=== PATIENT | female | born 1980 | race Caucasian/White ===

== ENCOUNTER 2017-08-25 15:07 | Emergency (ER) | payer MEDICAID ==
[~2017-08-25] VITALS: Ht 160 cm; Wt 92.2 kg
[~2017-08-25 15:07] MED LIST: CEPH500C5 PO; NAPR-1154 PO; PHEN-873 PO; TRAM50TA2 PO
[2017-08-25 15:16] VITALS: BP 174/110
[2017-08-25] MEDS ORDERED: TETanus/Pertussis (Acell)/Diphther VAC/PF (Tdap-Adult) 0.5ml syringe IM ONE (16:45)
[2017-08-25] MEDS ORDERED: BUPIVAcaine/PF 2.5 mg/ml (0.25%) 30ml vial IJ ONE (16:45)
== END 2017-08-25 18:12 | disposition home or self-care (01) ==
LOC: ER 15:08
DX: S51.812A Laceration without foreign body of left forearm, initial encounter (principal); I10 Essential (primary) hypertension; Z79.899 Other long term (current) drug therapy; W01.198A Fall on same level from slipping, tripping and stumbling with subsequent striking against other object, initial encounter; Y93.01 Activity, walking, marching and hiking; Y92.89 Other specified places as the place of occurrence of the external cause; Y99.8 Other external cause status
CPT/HCPCS: 12001; 90471; 90715; 99283; A6449; J3490

== ENCOUNTER 2019-04-07 05:32 | Day surgery (SDC) | payer MEDICAID ==
[2019-04-02 11:40] LABS: BASOPHILS # (AUTO) 0.1 X10'3 (0-0.2); BASOPHILS % (AUTO) 0.5 % (0-1); EOSINOPHILS # (AUTO) 0.1 X10'3 (0-0.9); EOSINOPHILS % (AUTO) 0.6 % (0-6); LYMPHOCYTES # (AUTO) 2.4 X10'3 (1.1-4.8); LYMPHOCYTES % (AUTO) 18.3 % (21-51); MEAN CORPUSCULAR HEMOGLOBIN 31.7 PG (27.0-31.0); MEAN CORPUSCULAR HGB CONC 33.8 g/dL (33.0-36.5); MEAN CORPUSCULAR VOLUME 93.8 FL (78-98); MEAN PLATELET VOLUME 9.4 FL (7.4-10.4); MONOCYTES # (AUTO) 0.8 X10'3 (0-0.9); MONOCYTES % (AUTO) 6.3 % (2-12); NEUTROPHILS # (AUTO) 9.6 X10'3 (1.8-7.7); NEUTROPHILS % (AUTO) 74.3 % (42-75); PRE OP HEMATOCRIT 44.9 % (35.0-45.0); PRE OP HEMOGLOBIN 15.2 g/dL (12.0-16.0); PRE OP PLATELET COUNT 259 X10'3 (140-440); RED BLOOD COUNT 4.79 X10'6 (4.20-5.60); RED CELL DISTRIBUTION WIDTH 14.1 % (11.5-14.5)
[2019-04-02 11:58] LABS: ALBUMIN 3.7 G/DL (3.4-5.0); ALBUMIN/GLOBULIN RATIO 1.1 (1.1-1.5); ALKALINE PHOSPHATASE 73 IU/L (46-116); BLOOD UREA NITROGEN 10 MG/DL (7-18); BUN/CREATININE RATIO 13.2 (6.6-38.0); CALCIUM 8.5 MG/DL (8.5-10.1); CHLORIDE 107 MMOL/L (99-107); CREATININE 0.76 MG/DL (0.40-0.90); PRE OP ALT 29 U/L (30-65); PRE OP ANION GAP 11 (8-16); PRE OP AST 19 U/L (10-37); PRE OP BILIRUB, TOTAL 0.4 MG/DL (0.0-1.0); PRE OP GLUCOSE 93 MG/DL (70-104); PRE OP POTASSIUM 4.3 MMOL/L (3.4-5.1); PRE OP SODIUM 139 MMOL/L (135-145); TOTAL CARBON DIOXIDE 21.1 MMOL/L (24-32); TOTAL PROTEIN 7.2 G/DL (6.4-8.2); eGFR 86 ML/MIN
[~2019-04-07] VITALS: Ht 160 cm; Wt 88.9 kg
[2019-04-07] VITALS (9 sets, daily range): BP systolic 11–148; BP diastolic 65–112
[~2019-04-07 05:32] MED LIST changes: -CEPH500C5 PO; +LOSA50TA3 PO; -NAPR-1154 PO; -PHEN-873 PO; -TRAM50TA2 PO
[2019-04-07] MEDS ORDERED: scopolamine 1.5mg patch.TD72 TD ONE (06:30)
[2019-04-07] MEDS ORDERED: albuterol 2.5 MG/3 ML nebule NEB ONE (06:30)
[2019-04-07] MEDS ORDERED: ringers solution, lacted 1,000 ML IV SCH ×2 (06:30→08:14)
[2019-04-07] MEDS ORDERED: famotidine 20mg tablet PO ONE (06:30)
[2019-04-07] MEDS ORDERED: LIDOcaine 1% (10mg/ml) 2ml vial ONE (06:39)
[2019-04-07] MEDS ORDERED: BUPIVAcaine/PF 2.5mg/ml (0.25%) 10ml vial ONE (06:42)
[2019-04-07] MEDS ORDERED: cefazolin/dext.iso 2gm/100ml 100 ML IV ONE (07:15)
[2019-04-07] MEDS ORDERED: vancomycin/NS 1 GM ADD-VANTAGE 250 ML IV ONE (07:15)
[2019-04-07] MEDS ORDERED: cloNIDine hcl/PF 100mcg/ml inj ONE (07:18)
[2019-04-07] MEDS ORDERED: MIDAZolam 5mg/5ml vial ONE (07:20)
[2019-04-07] MEDS ORDERED: fentaNYL/PF 50MCG/1 ML 2ML syringe ONE (07:20)
[2019-04-07] MEDS ORDERED: ROPIVAcaine 0.5% (5mg/ml) 30ml vial ONE ×2 (07:21→09:16)
[2019-04-07] MEDS ORDERED: ketorolac trometh. 30mg/ml inj. ONE (07:21)
[2019-04-07] MEDS ORDERED: LIDOcaine 2% (20mg/ml) 5ml vial ONE ×2 (07:21→07:24)
[2019-04-07] MEDS ORDERED: propofol inj 20 ML IV ONE (07:21)
[2019-04-07] MEDS ORDERED: dexamethasone sod phosphate 4mg/ml inj. ONE (07:21)
[2019-04-07] MEDS ORDERED: sevoflurane 250ml liquid IH ONE (07:22)
[2019-04-07] MEDS ORDERED: ondansetron/PF 4mg/2ml inj ONE (07:22)
[2019-04-07] MEDS ORDERED: LIDOcaine 1%/PF 5ML 10 MG/ML VIAL ONE (07:24)
[2019-04-07] MEDS ORDERED: proCHLORperazine 10 MG/2 ml inj IV PRN (08:15)
[2019-04-07] MEDS ORDERED: meperidine/PF 25mg/ml syringe IV PRN ×2 (08:15)
[2019-04-07] MEDS ORDERED: ondansetron/PF 4mg/2ml inj IV PRN (08:15)
[2019-04-07] MEDS ORDERED: morphine 4 MG/ML inj SYRINge IV PRN ×2 (08:15)
--- NOTE | 2019-04-07 09:45 | NUR ---
Received from OR via [facility], accompanied by Anesthesiologist DR. STATON and report given by Anesthesiolgist. PT ARRIVED AWAKE, C/O 9/10 PAIN TO BACK OF KNEE. MEDICATED FOR PAIN. DRESSING AND BRACE IN LOCKED POSITION IN PLACE TO LT LEG. PULSES AND OVEN ATTENDANT WNL. MOVES EXT X3, WIGGLES TOES ON FOOT OF LEG WITH LOCKED BRACE.
[2019-04-07] MEDS ORDERED: HYDROcodone/acetaminophen 10/325mg tab PO PRN (09:50)
[2019-04-07] MEDS ORDERED: acetaminophen 1,000mg/100ml IV 100 ML IV ONE (09:50)
[2019-04-07] MEDS: meperidine/PF 25mg/ml syringe IV PRN ×3 (09:54→10:19)
--- NOTE | 2019-04-07 11:05 | NUR ---
PT DC READY, PAIN CONTROLLED. DC INSTR READ TO PT, PT VERBALIZED UNDERSTANDING, WRITTEN COPY SENT WITH PT. VSS ON RA. IV DC'D. PT TO POV VIA FOR DC HOME. SANJANA DRIVING
== END 2019-04-07 11:05 | disposition home or self-care (01) ==
LOC: PAS 05:32
PROVIDERS: ATTEND Orthopaedic Surgery
DX: S83.242A Other tear of medial meniscus, current injury, left knee, initial encounter (principal); S83.512A Sprain of anterior cruciate ligament of left knee, initial encounter; M94.262 Chondromalacia, left knee; F17.210 Nicotine dependence, cigarettes, uncomplicated; Z98.890 Other specified postprocedural states; Z72.89 Other problems related to lifestyle; I10 Essential (primary) hypertension; E66.9 Obesity, unspecified; Z68.34 Body mass index [BMI] 34.0-34.9, adult; Z79.899 Other long term (current) drug therapy; X50.1XXA Overexertion from prolonged static or awkward postures, initial encounter; Y93.89 Activity, other specified; Y92.89 Other specified places as the place of occurrence of the external cause; Y99.8 Other external cause status
CPT/HCPCS: 29881; 29888; 36415; 80053; 82948; 85025; 93005; C1713; J0131; J0735; J1100; J1885; J2001; J2175; J2250; J2405; J2704; J3010; J3370; J3490; L1832; A4215; A4618; A6449; A7000; J2795; J7120